=== PATIENT | female | born 1970 | race African-American/Black ===

== ENCOUNTER 2025-09-28 16:48 | Emergency (ER) | payer MEDICARE, OTHER ==
[~2025-09-28] VITALS: Ht 167.6 cm; Wt 53.1 kg
[2025-09-28 16:50] VITALS: BP 133/74
[2025-09-28] MEDS ORDERED: LOSA50TA39 PO (17:05)
[2025-09-28] MEDS ORDERED: ACET-73 PO (17:05)
[2025-09-28] MEDS ORDERED: CARV3.122 PO (17:05)
[2025-09-28] MEDS ORDERED: ATOR40TA (17:05)
[2025-09-28] MEDS ORDERED: FLUD0.1T PO (17:05)
[2025-09-28] MEDS ORDERED: METO-356 PO (17:05)
[2025-09-28] MEDS ORDERED: IPRA3AMP23 NEB (17:05)
[2025-09-28] MEDS ORDERED: FOLI0.8T23 PO (17:05)
[2025-09-28] MEDS ORDERED: ALBU10.7 (17:05)
[2025-09-28] MEDS ORDERED: FAMO20TA8 PO (17:05)
[2025-09-28] MEDS ORDERED: LEVE500S9 PO (17:05)
[2025-09-28] MEDS ORDERED: MIDO10TA3 PO (17:05)
[2025-09-28] MEDS ORDERED: DILT60CA PO (17:05)
[2025-09-28] MEDS ORDERED: SENN-351 (17:05)
[2025-09-28] MEDS ORDERED: CLOT15CR27 TP (17:05)
[2025-09-28] MEDS ORDERED: [UNRECOGNIZED DRUG - CODE] PO (17:05)
[2025-09-28] MEDS ORDERED: TELM40TA8 PO (17:05)
[2025-09-28] MEDS ORDERED: METO25TA6 PO (17:05)
[2025-09-28 17:34] LABS: PLATELET COUNT (AUTO) 235 K/uL (179-408); RED BLOOD CELL COUNT(AUTO) 3.21 MIL/uL (3.63-4.92); RED CELL DISTRIBUTION WIDTH 15.0 % (12.3-17.7); WHITE BLOOD COUNT (AUTO) 7.2 K/uL (3.8-11.8)
[2025-09-28 17:44] LABS: CREATININE 5.0 mg/dL (0.6-1.3); ETHANOL < 3 MG/DL (0-10); SODIUM SERUM 145 mmol/L (136-145); UREA NITROGEN, BLOOD 20 mg/dL (7-18)
[2025-09-28 17:50] LABS: ASPARTATE AMINOTRANSFERASE 16 U/L (15-37); TOTAL PROTEIN, SERUM 7.6 g/dL (6.4-8.2)
[2025-09-28 18:58] VITALS: BP 127/80; TEMP 97.6; O2SAT 96
== END 2025-09-28 19:01 | disposition home or self-care (01) ==
LOC: ER 16:51
DX: S09.90XA Unspecified injury of head, initial encounter (principal); I13.2 Hypertensive heart and chronic kidney disease with heart failure and with stage 5 chronic kidney disease, or end stage renal disease; E11.22 Type 2 diabetes mellitus with diabetic chronic kidney disease; G40.909 Epilepsy, unspecified, not intractable, without status epilepticus; I67.82 Cerebral ischemia; N18.6 End stage renal disease; Z79.899 Other long term (current) drug therapy; Z86.73 Personal history of transient ischemic attack (TIA), and cerebral infarction without residual deficits; Z91.81 History of falling; Z99.2 Dependence on renal dialysis; W18.39XA Other fall on same level, initial encounter; Y93.89 Activity, other specified; Y92.89 Other specified places as the place of occurrence of the external cause; Y99.9 Unspecified external cause status
CPT/HCPCS: 36415; 70450; 71045; 72125; 83605; 84443; 84484; 85025; 85730; 87040; A4606; A4663; G0480